=== PATIENT | female | born 1970 | race Caucasian/White ===

== ENCOUNTER → 2017-04-27 | Outpatient (CLI) | payer OTHER ==
--- NOTE | 2017-04-28 09:38 | MRI ---
EXAM DESCRIPTION: MRI right shoulder CLINICAL HISTORY: Shoulder pain. Limited range of motion. COMPARISON: None. TECHNIQUE: Multiplanar, multisequence MR images of the right shoulder FINDINGS: Supraspinatus tendon and muscle are normal Infraspinatus intratendinous increased signal, tendinosis without tear. Normal muscle volume and signal Teres minor and subscapularis tendons and muscles are normal Biceps tendon normal in the bicipital groove and intra-articular. Labral anchor and superior labrum intact. No labral detachment No high-grade glenohumeral chondrosis or focal osteochondral lesion Mild acromioclavicular osteoarthritis with minimal indentation of the supraspinatus myotendinous junction. Lateral downsloping of the acromion with thickened coracoacromial ligament. Subacromial subdeltoid bursal edema IMPRESSION: Narrowed subacromial space from shape of the acromion and thickened coracoacromial ligament Infraspinatus tendinosis Electronically signed by: Ry Gonzalez MD 04/28/2017 9:38 AM CDT
== END | disposition home or self-care (01) ==
LOC: MRI 11:09
PROVIDERS: ATTEND Nurse Practitioner Family
DX: M19.011 Primary osteoarthritis, right shoulder (principal)

== ENCOUNTER → 2017-05-19 | Outpatient (CLI) | payer OTHER ==
--- NOTE | 2017-05-22 09:19 | RAD ---
EXAM DESCRIPTION: Shoulder,Right 2 or More Views CLINICAL HISTORY: 46 years,Female,PAIN IN RIGHT SHOULDER COMPARISON: None FINDINGS: The right shoulder demonstrates no evidence of fractures or dislocations or acute abnormalities. The acromial clavicular joint mild hypertrophy with inferior osteophyte as well.. The included lung rios are unremarkable. There is no significant lateral down sloping of the acromion with no significant narrowing of the supraspinatus outlet. IMPRESSION: Right shoulder demonstrates mild AC joint osteoarthritis. With a small inferior osteophyte. But no significant narrowing of the supraspinatus outlet at this time. Electronically signed by: Shiraz Jones MD 05/22/2017 9:17 AM CDT
== END | disposition home or self-care (01) ==
LOC: RAD 12:06
PROVIDERS: ATTEND Orthopaedic Surgery
DX: M25.511 Pain in right shoulder (principal)

== ENCOUNTER 2017-06-24 05:36 | Emergency (ER) | payer OTHER ==
[2017-06-24 05:55] VITALS: BP 122/84; TEMP 97.8; O2SAT 99
[2017-06-24] MEDS ORDERED: MECLIZINE HCL 12.5 MG TAB PO ONE (05:57)
--- NOTE | 2017-06-24 06:00 | ED.PDOC ---
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 Symptoms worsened during the call. + throbbing [place], posteriorly. Has history of migraines & this is similar. + nausea/vomiting. "Just not feeling right". Legs feel weak with walking, like they might give out on her. Hx of vertigo but normally only occurs when she is up high. BP was checked initially and was high but has returned to normal. Timing/Duration: 1 hour Severity: moderate Improving Factors: nothing Worsening Factors: nothing Associated Symptoms: nausea/vomiting, weakness <Karey Gavin - Last Filed: 06/24/17 05:57> <Zeb Galan - Last Filed: 06/24/17 07:38> - General Chief Complaint: Behavioral / Psych Stated Complaint: shaky, dizzy, weakness in legs Time Seen by Provider: 06/24/17 05:51 - History of Present Illness Allergies/Adverse Reactions: Allergies Ciprofloxacin [From Cipro] Allergy (Intermediate, Verified 11/04/15 13:39) Hives Ofloxacin [From Floxin] Allergy (Intermediate, Verified 11/04/15 13:39) Hives Sulfacetamide [From Sulfair] Allergy (Intermediate, Verified 11/04/15 13:39) Hives Home Medications: Ambulatory Orders Estradiol 0.5 mg PO DAILY 09/22/16 Meclizine HCl [Meclizine 25] 25 mg PO QID PRN #12 tab 06/24/17 Review of Systems - Review of Systems Constitutional: States: weakness. Denies: chills, fever EENTM: States: no symptoms reported Respiratory: States: no symptoms reported Cardiology: States: palpitations, other - Elevated blood pressure Gastrointestinal/Abdominal: States: nausea, vomiting. Denies: abdominal pain Musculoskeletal: States: no symptoms reported Skin: States: no symptoms reported Neurological: States: headache, weakness, other - dizziness All other Systems: No Change from Baseline <Karey Gavin - Last Filed: 06/24/17 05:57> Past Medical History (General) - Patient Medical History Hx Asthma: No Hx Congestive Heart Failure: Yes - Mitral valve prolapse Hx Hypertension: No Hx Diabetes: No Surgical History: Hysterectomy, other - Vaccination History Hx Tetanus, Diphtheria Vaccination: Yes Hx Influenza Vaccination: Yes - Social History Hx Tobacco Use: Yes Hx Alcohol Use: Yes - occ Hx Substance Use: No Hx Substance Use Treatment: No Hx Depression: No - Female History Patient : No <Karey Gavin - Last Filed: 06/24/17 05:57> Family Medical History - Family History Mother Family History: No Known <EfrainKarey grimes - Last Filed: 06/24/17 05:57> Physical Exam - Physical Exam General Appearance: Alert, Anxious, No apparent distress, Well Developed, Well Groomed, Well Hydrated, Well Nourished Eye Exam: bilateral normal - except for photophobia Ears, Nose, Throat: hearing grossly normal, normal ENT inspection, normal pharynx Neck: non-tender, full range of motion, supple, normal inspection Respiratory: lungs clear, normal breath sounds, no respiratory distress, no accessory muscle use Cardiovascular/Chest: regular rate, rhythm, no gallop, no murmur Extremity: normal range of motion, non-tender, normal inspection, no pedal edema 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 Does not want CT scan. Is agreeable to Meclazine to see if helps with dizziness. <EfrainKarey grimes - Last Filed: 06/24/17 05:57> - Progress Progress: 06/24/17 07:37 Care signed out to me at [address] Gavin. Pt assessed. She is in no acute distress. She states her headache and vertigo are better. She endorsed stress with family. She thinks if she goes home and gets rest that will help. Pt agreeable to Rx for more Meclizine to take as needed. Pt given return precautions. Neuro exam normal. Pt ambulatory with no gross deficits noted. <Zeb Galan - Last Filed: 06/24/17 07:38> Departure <Karey Gavin - Last Filed: 06/24/17 05:57> - Departure Time of Disposition: 07:50 <Zeb Galan - Last Filed: 06/24/17 07:38> - Departure Clinical Impression: Stress due to family tension Headache Qualifiers: Headache type: tension-type Headache chronicity pattern: acute headache Intractability: intractable Qualified Code(s): G44.201 - Tension-type headache, unspecified, intractable Disposition: Discharge to Home or Self Care Condition: Fair Departure Forms: ED Discharge - Pt. Copy, Patient Portal Self Enrollment Instructions: Tension Headache, Tips for Reducing Stress in Your Life Referrals: CECILIA BALLESTEROS [Primary Care Provider] - 1-2 Weeks Prescriptions: Meclizine HCl [Meclizine 25] 25 mg PO QID PRN #12 tab PRN Reason: Dizziness Home Medications: Ambulatory Orders Estradiol 0.5 mg PO DAILY 09/22/16 Meclizine HCl [Meclizine 25] 25 mg PO QID PRN #12 tab 06/24/17 Additional Instructions: Follow-up with primary care provider if having difficulty with your ability to function day to day. Return to ER if condition worsens.
== END 2017-06-24 07:40 | disposition home or self-care (01) ==
LOC: ER 05:36
DX: G44.201 Tension-type headache, unspecified, intractable (principal); I34.1 Nonrheumatic mitral (valve) prolapse; Z63.9 Problem related to primary support group, unspecified; Z87.891 Personal history of nicotine dependence; Z88.3 Allergy status to other anti-infective agents

== ENCOUNTER → 2018-04-19 | Outpatient (CLI) | payer OTHER ==
--- NOTE | 2018-04-19 18:53 | RAD ---
EXAM DESCRIPTION: Elbow,Right 3 Views CLINICAL HISTORY: PAIN IN RIGHT ELBOW COMPARISON: None Available. TECHNIQUE: AP, Lateral, and Oblique FINDINGS: Three-view right elbow shows no fracture or dislocation. There is no bone lesion. There are no significant arthritic changes. There is no radiopaque foreign body. IMPRESSION: Negative for fracture. Electronically signed by: Mo Olivarez MD 04/19/2018 6:51 PM CDT
== END ==
LOC: RAD 11:34
PROVIDERS: ATTEND Orthopaedic Surgery
DX: M25.521 Pain in right elbow (principal)

== ENCOUNTER 2018-08-03 20:40 | Emergency (ER) | payer OTHER ==
[2018-08-03] MEDS ORDERED: LEVALBUTEROL NEBS 1.25 MG/3 ML VIAL NEB ONE ×2 (20:53→20:59)
--- NOTE | 2018-08-03 20:58 | ED.PDOC ---
History of Present Illness - General Chief Complaint: Respiratory Problem Stated Complaint: cough, chest congestion, headache for 3 wks Time Seen by Provider: 08/03/18 20:55 Source: patient Exam Limitations: no limitations - History of Present Illness Initial Comments: Lauryn De La Torre 47 y/o female stated that she had nasal congestion,right earache and productive cough for the last 3 weeks and feels getting worse.No fever ,no chills Timing/Duration: other - see hpi Severity: moderate Episode Description: see hpi Possible Cause: occasional episodes Improving Factors: nothing Worsening Factors: nothing Associated Symptoms: cough, earache - right, headache, wheezing Respiratory Risk Factors: no cause identified Allergies/Adverse Reactions: Allergies Ciprofloxacin [From Cipro] Allergy (Intermediate, Verified 11/04/15 13:39) Hives Ofloxacin [From Floxin] Allergy (Intermediate, Verified 11/04/15 13:39) Hives Sulfacetamide [From Sulfair] Allergy (Intermediate, Verified 11/04/15 13:39) Hives Home Medications: Ambulatory Orders Estradiol 0.5 mg PO DAILY 09/22/16 Meclizine HCl [Meclizine 25] 25 mg PO QID PRN #12 tab 06/24/17 Acetamin W/Cod #3 Tab [Tylenol w/CODEINE #3] 1 ea PO Q8HRS PRN #14 tab 08/03/18 Albuterol Inhaler [Ventolin Hfa Inhaler] 108 mcg IN Q6HRS PRN #1 inh 08/03/18 Cefuroxime Axetil [Ceftin] 500 mg PO Q12H 7 Days #14 tablet 08/03/18 Review of Systems - Review of Systems Constitutional: States: no symptoms reported EENTM: States: see HPI Respiratory: States: see HPI Cardiology: States: no symptoms reported Gastrointestinal/Abdominal: States: no symptoms reported Genitourinary: States: no symptoms reported Musculoskeletal: States: no symptoms reported Skin: States: no symptoms reported Neurological: States: no symptoms reported Past Medical History (General) - Patient Medical History Hx Asthma: No Hx Congestive Heart Failure: Yes - Mitral valve prolapse Hx Hypertension: No Hx Diabetes: No Hx Other PMH: Yes - neck pain chronic Surgical History: other - hysterectomy,dental implant - Vaccination History Hx Tetanus, Diphtheria Vaccination: Yes Hx Influenza Vaccination: Yes - Social History Hx Tobacco Use: Yes Hx Alcohol Use: Yes - occ Hx Substance Use: No Hx Substance Use Treatment: No Hx Depression: No Hx Physical Abuse: No Hx Emotional Abuse: No - Activities of Daily Living Patient Lives Alone: No - Female History Patient : No Family Medical History - Family History Mother Family History: No Known Physical Exam - Physical Exam General Appearance: Alert, Comfortable, No apparent distress Eye Exam: bilateral normal ENT Exam: normal ENT inspection, hearing grossly normal, TMs normal Neck: non-tender, full range of motion, supple, trachea midline Respiratory: chest non-tender, no respiratory distress, wheezing - right >left Cardiovascular/Chest: normal peripheral pulses, regular rate, rhythm, no murmur Gastrointestinal/Abdominal: normal bowel sounds, non tender, soft, no organomegaly Extremity: non-tender, normal inspection, no pedal edema, no calf tenderness Neurologic: no motor/sensory deficits, normal mood/affect, oriented x 3 Skin Exam: normal color, warm/dry Progress - Progress Progress: 08/03/18 21:57 Vital Signs - 8 hr 08/03/18 08/03/18 20:54 21:00 Temperature 98.0 F 98.0 F Pulse Rate [ 103 H 103 H monitor] Respiratory 20 20 Rate Blood Pressure 145/93 145/93 [Left Arm] O2 Sat by Pulse 98 98 Oximetry - Results/Orders Results/Orders: 08/04/18 09:00 [facility] Daily Laboratory Results - last 24 hr 08/03/18 08/03/18 08/03/18 20:58 20:58 20:58 WBC 9.0 RBC 4.40 Hgb 15.1 Hct 43.5 MCV 98.9 MCH 34.4 H MCHC 34.8 RDW 12.4 Plt Count 369 MPV 6.7 L Absolute Neuts (auto) 3.80 Absolute Lymphs (auto) 4.30 H Absolute Monos (auto) 0.60 Absolute Eos (auto) 0.20 Absolute Basos (auto) 0.10 Neutrophils % 42.3 Lymphocytes % 47.8 Monocytes % 6.2 Eosinophils % 2.7 Basophils % 1.0 Sodium 139 Potassium 3.4 L Chloride 102 Carbon Dioxide 29 Anion Gap 11.4 L BUN 10 Creatinine 0.59 L BUN/Creatinine Ratio 16.9 Random Glucose 97 Serum Osmolality 276.5 Lactic Acid 1.4 Calcium 9.2 Total Bilirubin 0.3 AST 25 ALT 20 Alkaline Phosphatase 98 Serum Total Protein 7.4 Albumin 4.0 Globulin 3.4 Albumin/Globulin Ratio 1.2 - EKG/XRAY/CT XRAY: chest - no acute abnormalities noted Departure - Departure Clinical Impression: Bronchitis, Otalgia of right ear Time of Disposition: 21:59 Disposition: Discharge to Home or Self Care Condition: Good Departure Forms: ED Discharge - Pt. Copy, Patient Portal Self Enrollment Referrals: CECILIA BALLESTEROS [Primary Care Provider] - 1-2 Weeks Prescriptions: Albuterol Inhaler [Ventolin Hfa Inhaler] 108 mcg IN Q6HRS PRN #1 inh PRN Reason: Wheezing Acetamin W/Cod #3 Tab [Tylenol w/CODEINE #3] 1 ea PO Q8HRS PRN #14 tab PRN Reason: Pain Cefuroxime Axetil [Ceftin] 500 mg PO Q12H 7 Days #14 tablet Home Medications: Ambulatory Orders Estradiol 0.5 mg PO DAILY 09/22/16 Meclizine HCl [Meclizine 25] 25 mg PO QID PRN #12 tab 06/24/17 Acetamin W/Cod #3 Tab [Tylenol w/CODEINE #3] 1 ea PO Q8HRS PRN #14 tab 08/03/18 Albuterol Inhaler [Ventolin Hfa Inhaler] 108 mcg IN Q6HRS PRN #1 inh 08/03/18 Cefuroxime Axetil [Ceftin] 500 mg PO Q12H 7 Days #14 tablet 08/03/18 Additional Instructions: May use AFRIN nose spray 2 sprays each nose am/pm 3 days on 3 days off for nasal congestion as needed;Mucinex -DM 1 tablet am/pm for cough as needed (over the counter)Return to ER as needed
[2018-08-03] MEDS ORDERED: methylPREDNISolone SODIUM SUC 125 MG/2 ML VIAL IV ONE (21:02)
[2018-08-03 21:24] VITALS: TEMP 98
--- NOTE | 2018-08-03 21:40 | RAD ---
EXAM: AP CHEST RADIOGRAPH CLINICAL INDICATION: Cough. COMPARISON: No comparisons are available. FINDINGS: Cardiac size and pulmonary vasculature are normal. Lungs are clear. No pleural effusions or pneumothorax. No hilar or mediastinal lymphadenopathy. No mediastinal widening. No extraluminal bowel gas under the hemidiaphragms. Bones are intact on this single view. IMPRESSION: Normal portable AP chest radiograph. Electronically signed by: Marcelino Flores MD 08/03/2018 9:38 PM CDT
[2018-08-03] MEDS ORDERED: ORPHENADRINE CITRATE 30 MG/ML AMP IV ONE (21:50)
[2018-08-03] MEDS ORDERED: KETOROLAC TROMETHAMINE INJ 30 MG/ML VIAL IV ONE (21:50)
[2018-08-03] MEDS ORDERED: CEFUROXIME AXETIL TAB 250 MG TAB PO ONE (21:54)
[2018-08-03] MEDS ORDERED: HYDROCOD/APAP 10/325 (ER DISP) # 3 tablets PO ONE (21:55)
[2018-08-03 22:36] VITALS: BP 135/87; O2SAT 100
== END 2018-08-03 22:56 | disposition home or self-care (01) ==
LOC: ER 20:40
DX: J40 Bronchitis, not specified as acute or chronic (principal); H92.01 Otalgia, right ear; I34.1 Nonrheumatic mitral (valve) prolapse; Z87.891 Personal history of nicotine dependence; Z79.899 Other long term (current) drug therapy; Z88.8 Allergy status to other drugs, medicaments and biological substances; Z88.1 Allergy status to other antibiotic agents
CPT/HCPCS: 36415; 71045; 80053; 83605; 85025; 94640; J1885; J2360; J2930; J7614

== ENCOUNTER 2019-04-07 01:22 | Emergency (ER) | payer OTHER ==
[2019-04-07] MEDS ORDERED: HYDROmorphone HCL INJ 2 MG/ML VIAL IV ONE (01:29)
[2019-04-07] MEDS ORDERED: HYDROmorphone HCL INJ 2 MG/ML VIAL IM ONE ×2 (01:32→02:18)
--- NOTE | 2019-04-07 02:17 | RAD ---
EXAM: Three view(s) of the left elbow. INDICATION: Pain. COMPARISON: None. FINDINGS: There is a nondisplaced comminuted fracture involving the olecranon. The distal humerus and proximal radius appear intact. There is mild soft tissue swelling around the fracture site with a joint effusion. IMPRESSION: Nondisplaced comminuted fracture involving the olecranon. Electronically signed by: Tomasz Wilson MD 04/07/2019 2:15 AM CDT Workstation: [id number]
--- NOTE | 2019-04-07 02:18 | RAD ---
EXAM: Two view(s) of the right knee. INDICATION: Pain. COMPARISON: None. FINDINGS: No acute fracture or dislocation. No large soft tissue swelling. IMPRESSION: 1. No acute fracture. Electronically signed by: Tomasz Wilson MD 04/07/2019 2:15 AM CDT Workstation: [id number]
--- NOTE | 2019-04-07 02:59 | CT ---
EXAM: CT Left Upper Extremity Without Intravenous Contrast CLINICAL HISTORY: The patient is 48 years old and is Female; olecranon trauma TECHNIQUE: Axial computed tomography images of the left upper extremity without intravenous contrast. Sagittal and coronal reformatted images were created and reviewed. This CT exam was performed using one or more of the following dose reduction techniques: automated exposure control, adjustment of the mA and/or kV according to patient size, and/or use of iterative reconstruction technique. COMPARISON: Radiographs of the left elbow from 04/07/2019 FINDINGS: BONES/JOINTS: There is an acute, minimally displaced fracture of the olecranon process. This extends to the articular surface of the trochlear notch. No additional acute fractures visualized. No dislocation. Elbow joint effusion noted. SOFT TISSUES: Mild posterior soft tissue swelling. IMPRESSION: Acute intra-articular fracture of the olecranon process. Electronically signed by: Tamika Grossman MD 04/07/2019 2:56 AM CDT
--- NOTE | 2019-04-07 03:24 | ED.PDOC ---
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 The patient was stepping over electrical lines going to the cardioverter defibrillator when she tripped and fell. She hit her right knee And her left elbow and bumped her head. No loss of consciousness and no significant hematoma of the head. No laceration of the head. She has a mild abrasion to the right kneecap. She moves the right knee well. She is mostly guarding the left elbow. She does appear to be neurovascularly intact at this time. No gross deformity but there is some mild soft tissue swelling at that site. Timing/Duration: momentarily Severity: severe Improving Factors: immobilization Worsening Factors: movement Associated Symptoms: denies symptoms Allergies/Adverse Reactions: Allergies Ciprofloxacin [From Cipro] Allergy (Intermediate, Verified 11/04/15 13:39) Hives Ofloxacin [From Floxin] Allergy (Intermediate, Verified 11/04/15 13:39) Hives Sulfacetamide [From Sulfair] Allergy (Intermediate, Verified 11/04/15 13:39) Hives Home Medications: Ambulatory Orders Estradiol 0.5 mg PO DAILY 09/22/16 Meclizine HCl [Meclizine 25] 25 mg PO QID PRN #12 tab 06/24/17 Acetamin W/Cod #3 Tab [Tylenol w/CODEINE #3] 1 ea PO Q8HRS PRN #14 tab 08/03/18 Albuterol Inhaler [Ventolin Hfa Inhaler] 108 mcg IN Q6HRS PRN #1 inh 08/03/18 Cefuroxime Axetil [Ceftin] 500 mg PO Q12H 7 Days #14 tablet 08/03/18 Review of Systems - Review of Systems Constitutional: States: no symptoms reported EENTM: States: no symptoms reported Respiratory: States: no symptoms reported Cardiology: States: no symptoms reported Gastrointestinal/Abdominal: States: no symptoms reported Genitourinary: States: no symptoms reported Musculoskeletal: States: see HPI Skin: States: no symptoms reported Neurological: States: no symptoms reported Endocrine: States: no symptoms reported Past Medical History (General) - Patient Medical History Hx Seizures: No Hx Stroke: No Hx Dementia: No Hx Asthma: No Hx of COPD: No Hx Cardiac Disorders: No Hx Congestive Heart Failure: Yes - Mitral valve prolapse Hx Pacemaker: No Hx Hypertension: No Hx Thyroid Disease: No Hx Diabetes: No Hx Gastroesophageal Reflux: No Hx Renal Disease: No Hx Cancer: No Hx of HIV: No Hx Hepatitis C: No Hx MRSA: No Surgical History: Hysterectomy, other - Vaccination History Hx Tetanus, Diphtheria Vaccination: Yes Hx Influenza Vaccination: Yes Hx Pneumococcal Vaccination: No Immunizations Up to Date: Yes - Social History Hx Tobacco Use: Yes Hx Alcohol Use: Yes - occ Hx Substance Use: No Hx Substance Use Treatment: No Hx Depression: No Feels Threatened In Home Enviroment: No Feels Threatened In a Relationship: No Hx Physical Abuse: No Hx Emotional Abuse: No Hx Suspected Abuse: No - Activities of Daily Living Hospice Agency (if applicable):: None - Female History Patient : No - Triage Comment ED Triage Comment: Pt tripped over cord in trauma room and fell. Pt hit left elbow, right knee, and head when she fell. Family Medical History - Family History Mother Family History: No Known Physical Exam - Physical Exam General Appearance: Alert Eye Exam: bilateral normal Ears, Nose, Throat: hearing grossly normal Neck: full range of motion Respiratory: no respiratory distress, no accessory muscle use Cardiovascular/Chest: normal peripheral pulses, no edema Peripheral Pulses: radial,right: 2+, radial,left: 2+ Rectal Exam: deferred Back Exam: normal inspection Extremity: no pedal edema, no calf tenderness, normal capillary refill, other - abrasion over the right knee. Left elbow is held guarded to her side. 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 The patient has sustained a left olecranon fracture with minimal displacement that does extend into the articular surface. CT scan does confirm this. X-rays also confirm this. X-ray of the knee is negative. The patient is being placed in a long-arm splint. She needs to follow up with orthopedics in a few days to see if she is going to require surgery. She does appear to be neurovascularly intact at this time. ER warnings were given. She will be written for some pain medications for the next few days. Departure - Departure Clinical Impression: Closed olecranon fracture Qualifiers: Encounter type: initial encounter Laterality: left Qualified Code(s): S52.022A - Displaced fracture of olecranon process without intraarticular extension of left ulna, initial encounter for closed fracture Disposition: Discharge to Home or Self Care Condition: Fair Departure Forms: ED Discharge - Pt. Copy, Patient Portal Self Enrollment Diet: regular diet Activity: no pushing/pulling with affected limb Referrals: CECILIA BALLESTEROS [Primary Care Provider] - 1-2 Weeks Home Medications: Ambulatory Orders Estradiol 0.5 mg PO DAILY 09/22/16 Meclizine HCl [Meclizine 25] 25 mg PO QID PRN #12 tab 06/24/17 Acetamin W/Cod #3 Tab [Tylenol w/CODEINE #3] 1 ea PO Q8HRS PRN #14 tab 08/03/18 Albuterol Inhaler [Ventolin Hfa Inhaler] 108 mcg IN Q6HRS PRN #1 inh 08/03/18 Cefuroxime Axetil [Ceftin] 500 mg PO Q12H 7 Days #14 tablet 08/03/18 Additional Instructions: the patient's a 48-year-old female presenting after having fallen 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 The patient has sustained a left olecranon fracture with minimal displacement that does extend into the articular surface. CT scan does confirm this. X-rays also confirm this. X-ray of the knee is negative. The patient is being placed in a long-arm splint. She needs to follow up with orthopedics in a few days to see if she is going to require surgery. She does appear to be neurovascularly intact at this time. ER warnings were given. She will be written for some pain medications for the next few days.
[2019-04-07 03:39] VITALS: BP 147/96; TEMP 98.4; O2SAT 99
== END 2019-04-07 03:32 | disposition home or self-care (01) ==
LOC: ER 01:22
DX: S52.022A Displaced fracture of olecranon process without intraarticular extension of left ulna, initial encounter for closed fracture (principal); S80.811A Abrasion, right lower leg, initial encounter; I34.1 Nonrheumatic mitral (valve) prolapse; W01.0XXA Fall on same level from slipping, tripping and stumbling without subsequent striking against object, initial encounter; Y99.0 Civilian activity done for income or pay; Y92.69 Other specified industrial and construction area as the place of occurrence of the external cause; Z87.891 Personal history of nicotine dependence
CPT/HCPCS: 73080; 73200; 73560; 80307; J1170

== ENCOUNTER 2019-04-10 05:45 | Day surgery (SDC) | payer OTHER ==
--- NOTE | 2019-04-08 12:45 | RAD ---
EXAM DESCRIPTION: Chest,2 Views CLINICAL HISTORY: PREOP FOR ORIF LEFT ELBOW COMPARISON: None TECHNIQUE: PA/lateral FINDINGS: Rightward curvature of the lower T-spine. Heart size is normal with normal pulmonary vascularity. No pleural effusion or pneumothorax. Lungs are clear with no consolidating infiltrate. Lateral view shows intact sternum and T-spine. IMPRESSION: No acute process is identified in the chest. Electronically signed by: Mo Olivarez MD 04/08/2019 12:43 PM CDT
--- NOTE | 2019-04-08 13:51 | HP ---
CHIEF COMPLAINT: Left elbow pain. HISTORY OF PRESENT ILLNESS: Lauryn is a 48-year-old female with a history of a fall that occurred on 04/07/19. She had the acute onset of pain in the elbow. X-rays at that time revealed an olecranon fracture. She was placed in a splint and remains in that splint today. Today, she has complaints of pain only in the elbow without radiation or neurologic symptoms on the medial side, but does have some slight decreased sensation on the ulnar aspect of the hand. The splint that she has on there pretty tight before we removed it. PAST SURGICAL HISTORY: 1. ACL and MCL reconstruction. 2. x2. 3. Hysterectomy. MEDICATIONS: 1. Kelly. 2. Estradiol. 3. Hydrocodone. 4. Advil. ALLERGIES: SULFA, CIPROFLOXACIN. CODE STATUS: Full code. IMMUNIZATIONS: Up to date. FAMILY HISTORY: None pertinent to today's complaint. SOCIAL HISTORY: The patient does not drink or use any illicit drugs. She does smoke. REVIEW OF SYSTEMS: Negative except as indicated in the History of Present Illness. PHYSICAL EXAMINATION: VITAL SIGNS: Blood pressure 132/86. Pulse 80. Height 5'2". Weight 136 pounds. MENTAL STATUS: The patient is awake, alert, and is able to give a good history and participate in the physical. The patient is oriented to person, place and time. SKIN: Normal tone and turgor. HEENT: Normocephalic, atraumatic. Pupils equal, round and reactive. Mucosal membranes are moist. NECK: Normal range of motion. No thyromegaly, no lymphadenopathy. CHEST: Normal respiratory excursion. CARDIAC: Regular rate and rhythm. No murmurs, rubs or gallops. MUSCULOSKELETAL: The bilateral lower extremities show full active range of motion. She has intact sensation. They are warm and well perfused. There is no deformity. There is no malalignment. There is no evidence of trauma. The right upper extremity shows full range of motion of the shoulder, elbow, wrist and digits. Sensation is intact. It is warm and well perfused. There is no deformity. There is no crepitus or malalignment. The left upper extremity shows pretty diffuse swelling from the elbow distal. She has very slightly decreased sensation in the distribution of the ulnar nerve. The skin is intact. The extremity is warm and well perfused. There is no malalignment. Range of motion of the shoulder is intact as well as in the digits. No range of motion was performed on the elbow secondary to the fracture. IMAGING: X-rays show a fracture of the olecranon. ASSESSMENT: 1. Olecranon fracture. PLAN: The plan at this point is for ORIF of the olecranon. We have discussed the risks, benefits, and alternatives to that and just given the fact that she would have to have prolonged immobilization if she chose nonoperative therapy, I think she would end up with some significant stiffness and I do not believe that would be her best option. After discussing the risks, benefits and alternatives to operative therapy, the patient has given informed consent. [facility][id number] [facility]
[~2019-04-10 05:45] MED LIST: LACTATED RINGERS 1,000 ML ONE
[2019-04-10] MEDS ORDERED: ceFAZolin SODIUM 1 GM VIAL ONE ×3 (07:13→11:18)
[2019-04-10] MEDS ORDERED: SODIUM CHL 0.9% 100ML MINI-BAG 100 ML IVPB ONE (07:14)
[2019-04-10] MEDS ORDERED: LACTATED RINGERS 1,000 ML IVS ONE (07:25)
[2019-04-10] MEDS ORDERED: BUPIVACAINE 0.5% 30 ML VIAL INJ ONE (07:48)
[2019-04-10] MEDS ORDERED: BUPIVACAINE LIPOSOME 13.3 MG/ML VIAL INJ ONE ×2 (07:48→10:06)
[2019-04-10] MEDS ORDERED: MIDAZOLAM INJ 2 MG/2 ML VIAL ONE ×2 (07:52→09:55)
[2019-04-10] MEDS ORDERED: fentaNYL CITRATE INJ 50 MCG/ML AMP ONE (09:55)
[2019-04-10] MEDS ORDERED: PROPOFOL 200 MG/20 ML VIAL IV ONE (10:00)
[2019-04-10] MEDS ORDERED: METOCLOPRAMIDE HCL INJ 10 MG/2 ML VIAL IV ONE (10:00)
[2019-04-10] MEDS ORDERED: raNITIdine HCL INJ 25 MG/ML VIAL IV ONE (10:00)
[2019-04-10] MEDS ORDERED: DEXAMETHASONE INJ 10 MG/ML VIAL IV ONE (10:00)
[2019-04-10] MEDS ORDERED: ePHEDrine SULF 50 MG/ML IV ONE (10:00)
[2019-04-10] MEDS ORDERED: LIDOCAINE 1% 10 ML VIAL INJ ONE (10:00)
[2019-04-10] MEDS ORDERED: VANCOMYCIN HCL INJ 1,000 MG VIAL IVPB ONE (10:06)
[2019-04-10] MEDS ORDERED: BUPIVACAINE 0.25% W/EPI 50 ML VIAL INJ ONE (10:06)
[2019-04-10] MEDS ORDERED: LACTATED RINGERS 1,000 ML ONE (12:24)
--- NOTE | 2019-04-10 12:59 | RAD ---
EXAM DESCRIPTION: Elbow,Left 2 Views CLINICAL HISTORY: surgery COMPARISON: Previous x-rays of the left elbow April 07, 2019 TECHNIQUE: AP, Lateral x-ray views of the left elbow in the OR FINDINGS: Plate and screws in the proximal ulna with anatomic alignment of the proximal ulnar fracture. Mild displacement of distal fat pads. Radial head and capitellum are normally aligned on both views. On the AP view, small foreign body overlies the lateral condyle of the distal humerus. IMPRESSION: Internal fixation of proximal ulnar fracture with anatomic alignment. Electronically signed by: Mo Olivarez MD 04/10/2019 12:57 PM CDT
--- NOTE | 2019-04-10 14:03 | OP ---
DATE OF PROCEDURE: 04/10/19 PREOPERATIVE DIAGNOSIS: 1. Left olecranon fracture. POSTOPERATIVE DIAGNOSIS: 1. Left olecranon fracture. PROCEDURE: 1. Open reduction and internal fixation. SURGEON: Skyler Browning MD. PARADICHLOROBENZENE TENDER: Javier Kline CST, SA-C. ANESTHESIA: General anesthesia. COMPLICATIONS: None. FINDINGS: Fracture of the olecranon. INDICATION: Lauryn has a history of a fall that occurred at work. She had the acute onset of elbow pain and x-rays revealed a fracture of the olecranon. Subsequent to that, she presented to my office with pain in the elbow without radiation, neurologic symptoms or any other notable trauma. We discussed the risks, benefits and alternatives to operative therapy and informed consent was obtained. PROCEDURE: The patient was brought to the Operating Room and placed in supine position. General anesthesia was induced. The patient's arm was sterilely prepped and draped. Following prepping and draping, the olecranon was approached through an incision directly overlying the elbow. Dissection was carried down to the ulnar border. Soft tissues were elevated both medial and lateral to accommodate a plate going across the fracture site. Standard cortical bone screws were placed distally after reduction of the fracture under fluoroscopic imaging. Three locking screws were placed proximally. The arm was taken through a range of motion and found to be stable without any motion at the fracture and there was no motion of the plate. The wound was very thoroughly irrigated and closed with combination of running and interrupted subcuticular stitches with Nylon suture. Soft dressing was placed. She was placed in a sling, awoken from anesthesia and taken back to the Day Surgery Unit. POSTOPERATIVE PLAN: She will be in her sling for two days, but upon return to clinic, we will start her on immediate active and passive range of motion. #[id number] [facility]
[2019-04-10 14:47] VITALS: BP 105/75; TEMP 98.1; O2SAT 98
--- NOTE | 2019-04-11 15:38 | RAD ---
EXAM DESCRIPTION: Fluoroscopy Up to 1Hr CLINICAL HISTORY: ORIF . Elbow fracture fixation FINDINGS/ IMPRESSION: 2 intraoperative radiographs elbow fracture fixation. Fluoroscopy time 40 seconds Electronically signed by: Ry Gonzalez MD 04/11/2019 3:36 PM CDT
== END 2019-04-10 14:35 | disposition home or self-care (01) ==
LOC: AMB 05:45
PROVIDERS: ATTEND Orthopaedic Surgery
DX: S52.022A Displaced fracture of olecranon process without intraarticular extension of left ulna, initial encounter for closed fracture (principal); F17.200 Nicotine dependence, unspecified, uncomplicated; W19.XXXA Unspecified fall, initial encounter; Z90.710 Acquired absence of both cervix and uterus; Z88.2 Allergy status to sulfonamides; Z88.8 Allergy status to other drugs, medicaments and biological substances; Z79.899 Other long term (current) drug therapy
CPT/HCPCS: 01740; 24685; 36415; 71046; 73070; 76000; 80048; 80307; 81001; 85025; 87070; 87086; 93005; C1713; J0690; J1100; J2250; J2765; J2780; J3010; J3370; J3490; J7050; J7120

== ENCOUNTER → 2019-04-15 | Outpatient (CLI) | payer OTHER ==
--- NOTE | 2019-04-17 07:46 | RAD ---
EXAM DESCRIPTION: Shoulder,Left four x-ray Views CLINICAL HISTORY: PAIN COMPARISON: None Available. TECHNIQUE: Four views of the left shoulder. FINDINGS: There is adequate internal and external rotation. Normal alignment on transaxillary view and transscapular Y view. Orthopedic hardware at the elbow. There is no fracture or dislocation. There are no significant degenerative changes observed. AC joint appears intact. No focal bone lesion. IMPRESSION: Negative for fracture or dislocation. Electronically signed by: Mo Olivarez MD 04/17/2019 7:44 AM CDT
--- NOTE | 2019-04-17 07:46 | RAD ---
EXAM DESCRIPTION: Scapula,Left x-ray two views CLINICAL HISTORY: 48 years Female, PAIN COMPARISON: None. FINDINGS: Scapula appears intact. No fracture or lytic lesion of the left scapula. IMPRESSION: Negative for fracture or lytic lesion. Electronically signed by: Mo Olivarez MD 04/17/2019 7:43 AM CDT
--- NOTE | 2019-04-17 07:48 | RAD ---
EXAM DESCRIPTION: Ribs,Left 3 Views CLINICAL HISTORY: 48 years Female, PLEURODYNIA COMPARISON: None. FINDINGS: The left ribs appear intact. No fracture or lytic lesion. Left lung appears clear. Rightward scoliotic curvature of the mid and lower T spine with leftward curvature of the lower T-spine and upper L-spine. IMPRESSION: Negative for fracture. Electronically signed by: Mo Olivarez MD 04/17/2019 7:46 AM CDT
== END ==
LOC: RAD 16:25
PROVIDERS: ATTEND Orthopaedic Surgery
DX: M25.512 Pain in left shoulder (principal); R07.81 Pleurodynia

== ENCOUNTER → 2019-05-17 | Outpatient (CLI) | payer OTHER ==
--- NOTE | 2019-05-17 08:17 | RAD ---
EXAM DESCRIPTION: Elbow,Left 3 Views CLINICAL HISTORY: S52.021D COMPARISON: Previous study April 10, 2019 TECHNIQUE: AP, Lateral, and Oblique FINDINGS: Three-view left elbow shows plate and screws in the proximal ulna. Fracture lines appear healed. Capitellum and radial head are normally aligned. Prominent distal humeral fat pads consistent with small elbow joint effusion. No change in alignment since previous study. IMPRESSION: Orthopedic hardware in the proximal left ulna. No change in alignment compared to previous study. Electronically signed by: Mo Olivarez MD 05/17/2019 8:15 AM CDT
== END ==
LOC: RAD 07:33
PROVIDERS: ATTEND Orthopaedic Surgery
DX: S52.021D Displaced fracture of olecranon process without intraarticular extension of right ulna, subsequent encounter for closed fracture with routine healing (principal); Z98.890 Other specified postprocedural states

== ENCOUNTER → 2019-06-28 | Outpatient (CLI) | payer OTHER ==
--- NOTE | 2019-06-28 10:22 | RAD ---
PROVIDED CLINICAL HISTORY/REASON FOR EXAM: DISPLACED FRACTURE OF OLECRANON PROCESS OF RIGHT ULNA Findings: Number of images: Three Location: Left elbow Comparison May 17, 2019. Healed internally fixated olecranon fracture. No hardware complication identified. No acute fracture or dislocation. No focal soft tissue swelling. Joint alignment is maintained. No significant joint capsular distention. IMPRESSION: Healed internally fixated left olecranon fracture. Electronically signed by: Héctor Perez MD 06/28/2019 10:21 AM CDT
== END ==
LOC: RAD 07:34
PROVIDERS: ATTEND Orthopaedic Surgery
DX: S52.021D Displaced fracture of olecranon process without intraarticular extension of right ulna, subsequent encounter for closed fracture with routine healing (principal)

== ENCOUNTER → 2020-08-03 | Outpatient (CLI) | payer OTHER | LOC: LAB.O 10:33 | PROVIDERS: ATTEND Orthopaedic Surgery | DX: Z01.818 Encounter for other preprocedural examination (principal) ==

== ENCOUNTER 2020-08-19 05:18 | Day surgery (SDC) | payer OTHER ==
--- NOTE | 2020-08-14 14:06 | RAD ---
EXAM: Chest,2 Views CLINICAL HISTORY: preop clearance COMPARISON STUDY: None TECHNICAL: Posteroanterior (PA) and lateral views of the chest were performed. FINDINGS: No consolidations, effusions, or edema. The heart size is not enlarged. No acute osseous abnormality. Mild scoliotic curvature of the thoracic spine is stable. IMPRESSION: NEGATIVE CHEST XRAY. Electronically signed by: Ehsan Saucedo MD 08/14/2020 2:04 PM CDT
[2020-08-19] MEDS ORDERED: LACTATED RINGERS 1,000 ML ONE (05:47)
[2020-08-19] MEDS ORDERED: SODIUM CHL 0.9% 100ML MINI-BAG 100 ML IVPB ONE (05:47)
[2020-08-19] MEDS ORDERED: ceFAZolin SODIUM 1 GM VIAL ONE (05:47)
[2020-08-19] MEDS ORDERED: KETAMINE HCL 100 MG/ML VIAL ONE (06:56)
[2020-08-19] MEDS ORDERED: DEXMEDETOMIDINE HCL 200 MCG/2 ML INJ IV ONE (06:56)
[2020-08-19] MEDS ORDERED: MIDAZOLAM INJ 2 MG/2 ML VIAL ONE (06:57)
[2020-08-19] MEDS ORDERED: FAMOTIDINE INJ 10 MG/ML VIAL IV ONE (06:57)
[2020-08-19] MEDS ORDERED: HYDROmorphone HCL INJ 2 MG/ML VIAL ONE ×2 (06:57→08:44)
[2020-08-19] MEDS ORDERED: MAGNESIUM SULFATE INJ 1 GM/2 ML VIAL ONE (07:00)
[2020-08-19] MEDS ORDERED: PROPOFOL 200 MG/20 ML VIAL IV ONE (07:00)
[2020-08-19] MEDS ORDERED: SODIUM CHLORIDE 0.9% 50 ML VIAL ONE (07:00)
[2020-08-19] MEDS ORDERED: DEXAMETHASONE INJ 10 MG/ML VIAL ONE (07:00)
[2020-08-19] MEDS ORDERED: ePHEDrine SULF 50 MG/ML ONE (07:00)
[2020-08-19] MEDS: ceFAZolin SODIUM 1 GM VIAL ONE ×2 (07:33→08:02)
[2020-08-19] MEDS: BUPIVACAINE LIPOSOME 13.3 MG/ML VIAL INJ ONE ×2 (07:33→07:50)
[2020-08-19] MEDS: VANCOMYCIN HCL INJ 1,000 MG VIAL IVPB ONE ×2 (07:33→08:02)
[2020-08-19] MEDS: BUPIVACAINE 0.5% 30 ML VIAL INJ ONE ×2 (07:33→07:50)
[2020-08-19] MEDS ORDERED: HYDROmorphone HCL INJ 2 MG/ML VIAL IV ONE (08:45)
[2020-08-19] MEDS ORDERED: HYDROcodone 5MG/APAP 325MG 1 EA TAB ONE (09:12)
[2020-08-19] MEDS ORDERED: ONDANSETRON ODT 8 MG TAB ONE (09:13)
[2020-08-19] MEDS ORDERED: ONDANSETRON ODT 8 MG TAB PO ONE (09:15)
[2020-08-19] MEDS ORDERED: HYDROcodone 5MG/APAP 325MG 1 EA TAB PO ONE (09:15)
[2020-08-19 10:06] VITALS: BP 120/77; TEMP 96.8; O2SAT 98
--- NOTE | 2020-08-21 08:39 | OP ---
DATE OF PROCEDURE: 08/19/20 PREOPERATIVE DIAGNOSIS: 1. Symptomatic hardware of the left elbow. POSTOPERATIVE DIAGNOSIS: 1. Symptomatic hardware of the left elbow. PROCEDURE: 1. Left elbow hardware removal. SURGEON: Skyler Browning MD BOARDING ROOM FIXER: Javier Kline CST, SA-C ANESTHESIA: General anesthesia. COMPLICATIONS: None. FINDINGS: Hardware that was irritating the overlying structures. INDICATION: Lauryn has a history of ORIF on her olecranon. Fortunately, she has healed the fracture, but has had some irritation over the area. There is no evidence of infection, however, it did appear that there was some local irritation. After discussing the risks, benefits and alternatives to operative therapy, informed consent was obtained for removal of the plate. PROCEDURE: The patient was brought to the Operating Room and placed in supine position. General anesthesia was induced. The patient's arm was sterilely prepped and draped. Following prepping and draping, an incision was made directly overlying the plate. Following blunt dissection down to the plate, the plate was removed with seven screws. The screw holes were debrided and the wound was very thoroughly irrigated. It was closed with a combination of running and interrupted subcuticular stitches. Sterile dressings were placed and the arm was placed in a splint. The patient was awoken from anesthesia and taken to Recovery. POSTOPERATIVE PLAN: She will followup with us in two days. She has been encouraged to do range of motion of the digits. #[id number] [facility]
== END 2020-08-19 09:45 | disposition home or self-care (01) ==
LOC: AMB 05:18
PROVIDERS: ATTEND Orthopaedic Surgery
DX: Z47.2 Encounter for removal of internal fixation device (principal); F17.210 Nicotine dependence, cigarettes, uncomplicated; G43.909 Migraine, unspecified, not intractable, without status migrainosus; Z88.2 Allergy status to sulfonamides; Z88.8 Allergy status to other drugs, medicaments and biological substances; Z79.899 Other long term (current) drug therapy
CPT/HCPCS: 01740; 20680; 36415; 71046; 80048; 80307; 85025; 93005; J0690; J1170; J2250; J3370; J3490; J7050; J7120